=== PATIENT | male | born 1965 | race Caucasian/White ===

== ENCOUNTER 2017-08-18 20:08 | Emergency (ER) | payer SELFPAY ==
[~2017-08-18] VITALS: Ht 175.3 cm; Wt 90.5 kg
[~2017-08-18 20:08] MED LIST: DEPA500T3 PO; RISP1 PO
[2017-08-18 20:13] VITALS: BP 154/74; PULSE 90; RESP 18; TEMP 98.4; O2SAT 97
[2017-08-18] MEDS ORDERED: ASPI81CH7 CHEW (21:15)
[2017-08-18] MEDS ORDERED: CEPHALEXIN MONOHYDRATE 500 MG CAP PO ONE (21:45)
[2017-08-18] MEDS ORDERED: SULFAMETHOXAZOLE-TRIMETHOPRIM DS 800-160 MG TAB PO ONE (21:45)
[2017-08-18] MEDS ORDERED: ACETAMINOPHEN/HYDROcodone 325 MG/5 MG TAB PO ONE (21:45)
[2017-08-18] MEDS ORDERED: CEPH-460 PO (21:45)
[2017-08-18] MEDS ORDERED: BACT800T5 PO (21:45)
--- NOTE | 2017-08-18 21:45 | PD ---
HPI Chief Complaint: Skin Problem Time Seen by Provider: 21:21 Travel History International Travel<30 days: No Contact w/Intl Traveler<30days: No Traveled to known affect area: No History of Present Illness HPI 52-year-old male here for evaluation of painful area of erythema to his left chest just superior to his left nipple. He reports that he first noticed the area about 4 days ago and it has gradually increased in size and pain. He thought at first it was an ingrown hair/pimple. He has not squeezed the area, rather has been applying warm compresses. He denies fevers or chills. Pain is severe, constant, sharp/shooting. No history of IVDU. PFSH Past Medical History Heart Rhythm Problems: No Cancer: No Cardiac Catheterization: Yes Cardiovascular Problems: Yes (PERICARDITIS) High Cholesterol: Yes Chest Pain: Yes Congestive Heart Failure: No Cerebrovascular Accident: Yes (TIA 2013) Coronary Artery Disease: Yes Diabetes: No Diminished Hearing: No Gastrointestinal Disorders: Yes (stomach cramps) Genitourinary: No Heparin Induced Thrombocytopen: No Hypertension: Yes Psychiatric: Yes (BIPOLAR) Respiratory: No Immunizations Current: Yes Thyroid Disease: Yes (HYPER) Tetanus Vaccination: < 5 Years Influenza Vaccination: No Past Surgical History Coronary Artery Bypass Graft: No Joint Replacement: Yes (KNEE) Other Surgery: Yes (knee surgery, nose surgery) Family History Family Myocardial Infarction: No Social History Alcohol Use: Yes (SOCIALLY) Tobacco Use: No (1/2PPD) Substance Use: No Allergies-Medications (Allergen,Severity, Reaction): Coded Allergies: No Known Allergies (Unverified Adverse Reaction, Unknown, 08/18/17) Reported Meds & Prescriptions Reported Meds & Active Scripts Active Reported Aspirin Children's (Aspirin) 81 Mg Chew 81 Mg CHEW DAILY Review of Systems Except as stated in HPI: all other systems reviewed are Neg Physical Exam Narrative GENERAL: Well-developed, well-nourished, comfortable, no apparent distress. SKIN: Just superior to the left nipple there is an area of erythema approximately 2 cm x 4 cm with underlying induration. This area was evaluated using a bedside linear ultrasound and shows cobblestoning which is consistent with cellulitis with a very tiny hypoechoic area in the center. ENT: Mucous membranes pink and moist. NECK: Trachea midline. No JVD. No nuchal rigidity. CARDIOVASCULAR: Regular rate and rhythm. RESPIRATORY: No accessory muscle use. Clear to auscultation. Breath sounds equal bilaterally. NEUROLOGICAL: Awake and alert. No obvious cranial nerve deficits. Motor grossly within normal limits. Normal speech. PSYCHIATRIC: Appropriate mood and affect; insight and judgment normal. Data Data Last Documented VS Vital Signs Date Time Temp Pulse Resp B/P (MAP) Pulse Ox O2 Delivery O2 Flow Rate FiO2 08/18/17 20:13 98.4 90 18 154/74 (100) 97 Orders Orders Sulfamet-Trimeth Ds 800-160 Mg (Bactrim (08/18/17 21:45) Cephalexin (Keflex) (08/18/17 21:45) [facility] Medical Decision Making Medical Screen Exam Complete: Yes Emergency Medical Condition: Yes Differential Diagnosis Cellulitis, abscess. Narrative Course Vital signs show heart rate 90, blood pressure 154/70, pulse ox 97% on room air , oral temp 98.4F. This is a 52-year-old male with an area of cellulitis just superior to his left nipple with a small hypoechoic area at the center seen on bedside linear ultrasound. 18-gauge needle was introduced into the area of hypoechogenicity, and a very tiny amount of purulence was expressed. This was sent for culture and sensitivity. Patient started on Bactrim and Keflex. PMD follow-up this week. He was advised on when to return to the emergency department. He verbalizes understanding and agreement with plan. Procedures Procedure Narrative Bedside ultrasound: Using the linear ultrasound probe, a bedside ultrasound was used to evaluate the area of erythema just superior to the patient's left nipple. This shows a moderate sized area of cobblestoning which is consistent with cellulitis with a very tiny central area of hypoechogenicity which is consistent with an abscess. Incision and drainage of left anterior chest wall abscess: Left anterior chest wall prepped with alcohol swab. Ethyl chloride used for local anesthesia. 18-gauge needle was introduced at the site of hypoechogenicity seen on ultrasound and a very tiny amount of purulence was expressed. This was sent for culture and sensitivity. Tolerated well. No complications. Diagnosis Primary Impression: Chest wall abscess Additional Impression: Cellulitis of chest wall Referrals: [facility] 3 days Primary Care Physician 3 days Additional Instructions: Take antibiotics as prescribed. Warm compresses 3-4 times daily. Follow-up with a primary care physician this week. Return to the emergency department for worsening symptoms or any other concerns. Scripts Cephalexin (Keflex) 500 Mg Cap 500 MG PO Q8H for Infection, #30 CAP 0 Refills Prov: Severo Eckert MD 08/18/17 Sulfamethoxazole-Trimethoprim (Bactrim DS) 800-160 Mg Tab 1 TAB PO BID for Infection, #20 TAB 0 Refills Prov: Severo Eckert MD 08/18/17 Disposition: 01 DISCHARGE HOME Condition: Stable Severo Eckert MD Aug 18, 2017 21:45
== END 2017-08-18 22:16 | disposition home or self-care (01) ==
LOC: PHED 20:08 → PHEFT 22:16
DX: L02.213 Cutaneous abscess of chest wall (principal); L03.313 Cellulitis of chest wall; B95.62 Methicillin resistant Staphylococcus aureus infection as the cause of diseases classified elsewhere; E78.00 Pure hypercholesterolemia, unspecified; I10 Essential (primary) hypertension; I25.10 Atherosclerotic heart disease of native coronary artery without angina pectoris; F31.9 Bipolar disorder, unspecified; Z86.73 Personal history of transient ischemic attack (TIA), and cerebral infarction without residual deficits
CPT/HCPCS: 10060; 86403; 87070; 87186; 87205